=== PATIENT | female | born 1985 | race Caucasian/White ===

== ENCOUNTER 2025-02-04 06:24 | Day surgery (SDC) | payer OTHER, SELFPAY ==
[2025-02-03 13:05] VITALS: BMI 25.5
--- NOTE | 2025-02-03 15:12 | PTCARENOTE ---
Abn ECG, Dr. Clements notified, no additional interventions requested.
[2025-02-04] VITALS (9 sets, daily range): BP systolic 79–136; BP diastolic 57–88; BMI 25.5
[2025-02-04] MEDS: NORMOSOL-R/PLASMALYTE-A 1000 IV (09:52)
== END 2025-02-04 13:22 | disposition home or self-care (01) ==
LOC: SDS 06:24
PROVIDERS: ATTENDING PHYSICIAN Surgery; FAMILY PHYSICIAN Internal Medicine
DX: K60.311 Anal fistula, simple, initial (principal); K64.1 Second degree hemorrhoids
CPT/HCPCS: 46948; 46270; 36415; 93005